=== PATIENT | male | born 1965 | race Caucasian/White ===

== ENCOUNTER 2021-06-03 09:46 | Inpatient (IN) ==
--- NOTE | 2021-05-19 15:24 | PAT Medication Instructions ---
Medication Instructions Date of Service May 19, 2021 Home Medications allopurinol 300 mg tablet 300 mg PO HS celecoxib 200 mg capsule (Celebrex) 200 mg PO BID fenofibric acid (choline) 135 mg capsule,delayed release 135 mg PO QAM metoprolol succinate 50 mg tablet,extended release 24 hr 50 mg PO QAM omega 8-mlu-vmn-fish oil 900 mg-1,400 mg capsule,delayed release 1 cap PO TID pregabalin 150 mg capsule 150 mg PO BID ASK your surgeon for instructions celecoxib 200 mg capsule (Celebrex) 200 mg PO BID STOP taking 2 weeks before surgery (or as soon as possible if surgery is within 2 weeks) omega 7-ccg-erf-fish oil 900 mg-1,400 mg capsule,delayed release 1 cap PO TID DO NOT take the morning of surgery fenofibric acid (choline) 135 mg capsule,delayed release 135 mg PO QAM Take morning of surgery With a small sip of water, OTHERWISE NOTHING TO EAT OR DRINK AFTER MIDNIGHT: metoprolol succinate 50 mg tablet,extended release 24 hr 50 mg PO QAM pregabalin 150 mg capsule 150 mg PO BID Take evening before surgery allopurinol 300 mg tablet 300 mg PO HS pregabalin 150 mg capsule 150 mg PO BID Other Notes If you have any questions please call us at [phone] or [phone] or [phone] or [phone]
--- NOTE | 2021-05-24 12:38 | Anesthesiology Consultation ---
Date of Service May 24, 2021 Assessment & Plan (1) Encounter for pre-operative examination: - Preop EKG: iLBBB noted on preop EKG. Reviewed with Dr. Lane. He recommends forwarding EKG to PCP and to leave at their discretion if further cardiac evalu ation and/or testing needed from their perspective. Awaiting PCP response. - COVID screening: Per assessment on 05/24: Travel screen negative, no known COVID-19 positive contacts or current COVID-19 related symptoms. Patient vaccinated. Surgeon arranging preop COVID testing. Awaiting results. - Check BSG AM DOS (BSG elevated at 161 on preop labs. No known hx of diabetes. Will recheck BSG AM DOS) Chart Review Chart Review: Patient seen in Pre Admission Testing Teaching & Discussion Pre-Anesthesia Teaching/Discussion Notes: Instructed NPO after midnight before surgery,except medications with 15 cc of water. Medication instructions provided according to the PAT guidelines. History Surgery Operation Date: 06/03/21 07:45 Proposed Procedures p L2-L3 Decompression/Fusion, Spinal Cord Monitoring - Jose Martin Wray DO Height/Weight Height: 5 ft 9 in Weight: 92.5 kg Allergies Allergy/AdvReac Type Severity Reaction Status Date / Time No Known Allergies Allergy Verified 05/19/21 11:25 Medications Home Medications Medication Instructions Recorded Confirmed Last Taken allopurinol 300 mg tablet 300 mg PO HS 05/19/21 05/19/21 Unknown celecoxib 200 mg capsule (Celebrex) 200 mg PO BID 05/19/21 05/19/21 Unknown fenofibric acid (choline) 135 mg 135 mg PO QAM 05/19/21 05/19/21 Unknown capsule,delayed release metoprolol succinate 50 mg 50 mg PO QAM 05/19/21 05/19/21 Unknown tablet,extended release 24 hr omega 2-xis-gvr-fish oil 900 1 cap PO TID 05/19/21 05/19/21 Unknown mg-1,400 mg capsule,delayed release pregabalin 150 mg capsule 150 mg PO BID 05/19/21 05/19/21 Unknown Past Medical History Medical History Chronic back pain RLE Fast heart beat Hx, controlled on beta brandie (PCP monitoring) Hyperlipidemia Exercise / Class Metabolic Activity II 4-5 Yardwork/Stairs/Walk up hill (one FS (no CP, no SOB)) Past Family History Family History Other No known health problems Past Surgical History Surgical History Epididymal cyst Removal Fusion of spine L5 (1989) History of carpal tunnel release R/L History of elbow surgery R/L (for tennis elbow) History of herniorrhaphy History of repair of rotator cuff R/L Past Anesthesia History No Family Hx of Anesthesia Complications and Other (Irritable with anesthesia emergence. Significant pain after PNB with previous surgery.) History of PONV No Hx of PONV and No Hx of Motion Sickness Social History Smoking Status: Never smoker Do You Dip or Chew Tobacco: No Hx Alcohol Use: No Hx Substance Use: No Review of Systems Patient denies chest pain, shortness of breath, dyspnea on exertion, fever, chills, cough, wheezing, palpitations. Physical Exam Vital Signs VITALS BP 131/78 P 59 TEMP 98.2 SP02 100%RA RESP 16 PHYSICAL Full cervical extension range of motion. Full TMJ range of motion. TMD 3 finger breaths Mallampati Score 3 Dentition: missing molars Lungs: clear throughout to auscultation Cardiac: regular rate and rhythm, no murmurs noted Spine: normal Carotid arteries: negative bruit Extremities: no edema Lab Results Anesthesia Preop Results Results Anesthesia Widget: WBC 4.69 K/uL (4.8-10.8) L 05/24/21 Hgb 14.9 g/dL (14.0-18.0) 05/24/21 Hct 43.7 % (42-52) 05/24/21 Plt 201 K/uL (130-400) 05/24/21 Na 140 mmol/L (136-145) 05/24/21 K 4.0 mmol/L (3.5-5.1) 05/24/21 Cl 108 mmol/L (98-107) H 05/24/21 CO2 26 mmol/L (21-32) 05/24/21 BUN 21 mg/dl (7-18) H 05/24/21 Creat 1.16 mg/dl (0.6-1.4) 05/24/21 Glucose Level 161 mg/dl (70-99) H 05/24/21 PT 10.9 Seconds (9.0-12.0) 05/24/21 PTT 24.7 Seconds (21.0-31.0) 05/24/21 INR 1.1 (0.9-1.1) 05/24/21 Urine Color Dark Yellow 05/24/21 Urine Appearance Clear (Clear) 05/24/21 Urine pH 5.0 (4.5-7.5) 05/24/21 Urine Specific [place] 1.029 (1.000-1.030) 05/24/21 Urine Protein Trace (Negative) H 05/24/21 Urine Glucose (UA) 1+ (Negative) H 05/24/21 Urine Ketones Trace (Negative) H 05/24/21 Urine Blood Negative (Negative) 05/24/21 Urine Nitrite Negative (Negative) 05/24/21 Urine Bilirubin 1+ (Negative) H 05/24/21 Urine Urobilinogen Negative (Negative) 05/24/21 Urine Leukocyte Esterase Negative (Negative) 05/24/21 Urine WBC (Auto) 1-5 /hpf (0-5) 05/24/21 Urine RBC (Auto) 0-4 /hpf (0-4) 05/24/21 Urine Hyaline Casts (Auto) 5-10 /lpf (0-5) H 05/24/21 Urine Epithelial Cells (Auto) 20-30 /lpf (0-5) H 05/24/21 Urine Bacteria (Auto) Negative (Negative) 05/24/21 Blood Type A Positive 05/24/21 Antibody Screen NEGATIVE 05/24/21 Testing Electrocardiogram Date: 05/24/21 Sinus bradycardia 55 bpm. LAD. Pulmonary disease pattern. Incomplete left bundle block. Nonspecific T wave abnormalityanterior lateral leads. Chest X-Ray Date: 05/24/21 FINDINGS: Lung volumes are normal. Lungs are clear. There is no pneumothorax or pleural effusion. Mild cardiomegaly is noted. Mediastinal contours are normal. There is no evidence for pulmonary edema. IMPRESSION: No acute cardiopulmonary findings. Mild cardiomegaly.
[~2021-06-03 09:46] MED LIST: ACETAMINOPHEN 500 MG TAB PO SCH; CeleBREX 200 MG CAP PO SCH; GABAPENTIN 600 MG DOSE PO SCH; LR 15ML/HR IV SCH; ceFAZolin 2000MG 2,000 MG/15 ML SYR IV SCH
[2021-06-03] MEDS ORDERED: fentaNYL citrate 100 MCG/2 ML VIAL ONE (10:57)
[2021-06-03] MEDS ORDERED: LIDOCAINE 2% 2 ML VIAL/AMP(20MG/ML) INFIL ONE (10:57)
[2021-06-03] MEDS ORDERED: NEOSTIGMINE METHYLSULFATE 1 MG/ML 10ML VIAL ONE (10:57)
[2021-06-03] MEDS ORDERED: GLYCOPYRROLATE 0.2 MG/ML VIAL ONE (10:57)
[2021-06-03] MEDS ORDERED: ONDANSETRON INJ 2 MG/ML 2 ML VIAL ONE (10:57)
[2021-06-03] MEDS ORDERED: DEXAMETHASONE SOD INJ 4 MG/ML VIAL ONE (10:57)
[2021-06-03] MEDS ORDERED: MIDAZOLAM HCL 1 MG/ML 2ML VIAL ONE (10:57)
[2021-06-03] MEDS ORDERED: PROPOFOL IV EMULSION 10 MG/ML 20 ML VIAL IV ONE (10:57)
[2021-06-03] MEDS ORDERED: BUPIVACAINE 0.5 % 5 MG/1 ML MPF 30ML VIAL ONE (11:50)
[2021-06-03] MEDS ORDERED: EPINEPHrine INJ 1 MG/ML AMP ONE (11:50)
--- NOTE | 2021-06-03 11:59 | History & Physical Bridge Note ---
Date of Service June 03, 2021 History & Physical Bridge Note I have examined the patient, reviewed the History & Physical and in the interval since the performance of the History & Physical I have noted the following changes of clinical significance: no changes noted
--- NOTE | 2021-06-03 12:00 | History & Physical Report ---
Date of Service June 03, 2021 Assessment & Plan (1) Lumbar disc herniation with radiculopathy: Plan: L2-L3 decompression fusion History of Present Illness Chief Complaint: Back and leg pain Primary Care Provider: Va Lopez This is a 55-year-old male who presents with current persistent back and leg pain. Failing course of nonoperative care is here for surgical intervention. Allergies Allergy/AdvReac Type Severity Reaction Status Date / Time No Known Allergies Allergy Verified 06/03/21 10:20 Home Medications Medication Instructions Recorded Confirmed Type allopurinol 300 mg tablet 300 mg PO HS 05/19/21 06/03/21 History celecoxib 200 mg capsule (Celebrex) 200 mg PO BID 05/19/21 06/03/21 History fenofibric acid (choline) 135 mg 135 mg PO QAM 05/19/21 06/03/21 History capsule,delayed release metoprolol succinate 50 mg 50 mg PO QAM 05/19/21 06/03/21 History tablet,extended release 24 hr omega 1-zox-isj-fish oil 900 1 cap PO TID 05/19/21 06/03/21 History mg-1,400 mg capsule,delayed release pregabalin 150 mg capsule (Lyrica) 150 mg PO BID 05/19/21 06/03/21 History Past Med/Surg History Medical History Chronic back pain RLE Fast heart beat Hx, controlled on beta brandie (PCP monitoring) Hyperlipidemia Surgical History Epididymal cyst Removal Fusion of spine L5 (1989) History of carpal tunnel release R/L History of elbow surgery R/L (for tennis elbow) History of herniorrhaphy History of repair of rotator cuff R/L Family History Other No known health problems Social History (Updated 05/19/21 @ 11:49 by Alva Calderon RN) Smoking Status: Never smoker Second Hand Exposure: No; Do You Dip or Chew Tobacco: No; Hx Alcohol Use: No Hx Substance Use: No Preferred Language: Slovak Communication Ability: Effective Secondary Connector Armature Required: No Beliefs That Will Affect Care: None Current Living Situation: Alone current occupational status: employed current occupation: MAINTENANCE Other Information That Helps Us Care for You: No Feels Safe at Home: Yes Safety Concerns: Feels Safe At This Time Assistive Devices: Glasses Physical Exam Physical Exam: Patient is alert and oriented Heart regular in rhythm Lungs clear to auscultation Results & Data ([facility]) Vital Signs (Past 12 Hours) Vital Signs Temp Pulse Resp BP Pulse Ox 06/03/21 10:24 36.7 C 74 18 164/82 H 98
[2021-06-03] MEDS ORDERED: ONDANSETRON INJ 2 MG/ML 2 ML VIAL IV PRN ×2 (12:08→15:44)
[2021-06-03] MEDS ORDERED: ATROPINE SULFATE 0.1 MG/ML 10ML SYR IV PRN (12:08)
[2021-06-03] MEDS ORDERED: HYDROmorphone INJ 2 MG/ML SYR/VIAL IV PRN (12:08)
[2021-06-03] MEDS ORDERED: ePHEDrine sulfate 50 MG/ML AMP IV PRN (12:08)
[2021-06-03] MEDS ORDERED: ROCURONIUM BROMIDE 10 MG/ML 5 ML VIAL IV ONE ×3 (12:10→12:52)
[2021-06-03] MEDS ORDERED: HYDROmorphone INJ 2 MG/ML SYR/VIAL ONE (12:53)
[2021-06-03] MEDS ORDERED: FLOSEAL HEMOSTATIC MATRIX 10ML TOP ONE (13:58)
[2021-06-03] MEDS ORDERED: ePHEDrine sulfate 50 MG/ML SYR ONE (14:01)
[2021-06-03] MEDS ORDERED: PHENYLEPHRINE 100MCG/ML 5ML SYR ONE (14:01)
--- NOTE | 2021-06-03 14:04 | Operative Report ---
Post Operative Report Pre & Post Diagnosis Operation Date: 06/03/21 12:05 Pre-Op Diagnosis: Intervertebral Disc Disorders with Radiculopathy Post-Op Diagnosis: Intervertebral Disc Disorders with Radiculopathy I identified the patient and participated in the time-out.: Yes Procedure Operation Date: 06/03/21 12:05 Actual Procedures #1 Lumbar decompression with medial facetectomy foraminotomy and excision of herniated foraminal disc L2-L3. #2 posterior spinal fusion L2-3. #3 placement posterior instrumentation L2-L3. #4 interbody fusion L2-L3. #5 placed a peek cage 14 x 26 mm at L2-L3. #6 placement locally harvested morselized autograft in the posterior gutters. #7 placement of I factor combined with Vitoss in the interbody space and posterior lateral gutters. Surgeon Jose Martin Wray, Associate Doctor Johnathan Crandall Estimated Blood Loss 75 Findings Consistent with Post-Op Diagnosis Specimens None Indications This is a 55-year-old male who presents with above-mentioned diagnosis after failing course of nonoperative care is here for the above-mentioned procedure. Description of Procedure Patient was met with identified informed consent obtained. Patient was then taken to the operative suite underwent ablation placed in a prone position on Jone table top [place] frame. A bony promises well-padded eyes inspected to ensure no external pressure placed upon them. This point lumbar spine was prepped and draped in a sterile fashion. Sharp dissection with the assistance of Bovie cautery was performed down to and exposing the lamina and transverse processes of L2 and L3. From caudal cephalad fashion complete laminectomy of L2 was performed occluding facetectomy on the right to expose a severely compressed exiting L2 nerve root. Was able to identify fragments in the axilla all the way out through the foramen. The removed in their entirety to decompress the root. Pedicle screws were then placed in L2 and L3 bilaterally with assistance of fluoroscopy the proper sized terrance placed. Bilateral transforaminal portion right complete discectomy of L2-L3 was performed endplates curetted to subcortical being bone and a 14 x 26 mm peek cage filled with I factor tapped in position. The rods were then compressed locked into final position bilaterally. Mejia sverse processes of L2 and L3 burred to subcortically bone. I factor combined with Vitoss placed in the posterior gutters. 15 round ARABELLA drain inserted. The incision was then closed with 1 Vicryl the fascia 2-0 Vicryl subcutaneously and 4 Monocryl for final skin closure. Steri-Strip sterile dressing was placed. Patient waken taken PACU stable condition. Please note spinal cord monitoring was utilized at the procedure no changes noted. Lastly Johnathan Crandall was present for the entire surgery involved the patient positioning complex portions of the surgery and final skin closure. I attest to the content of the Intraoperative Record and any orders documented therein. Any exceptions are noted below.
[2021-06-03] MEDS: fentaNYL citrate 100 MCG/2 ML VIAL IV PRN ×4 (14:35→14:55)
--- NOTE | 2021-06-03 14:59 | Fluoroscopy Report ---
FL lumbar spine 2-3V HISTORY: 55 years-old Male L2-L3 DECOMPRESSION/FUSION COMPARISON: Chest radiographs 05/24/2021 TECHNIQUE: 2 views of the lumbar spine were obtained utilizing 25.3 seconds fluoroscopy time FINDINGS: Posterior terrance and screw fusion with discectomy changes are noted at what is labeled the L2-L3 level. Exact numbering cannot be confirmed secondary to magnification of the image. The hardware appears int act. Alignment appears satisfactory. IMPRESSION: Fluoroscopic assistance as above. ACT 112: Negative or not required by law. The above report was generated using voice recognition software. It may contain grammatical, syntax o r spelling errors. Electronically signed by: Desean Abebe M.D. 06/03/2021 2:58 PM
--- NOTE | 2021-06-03 15:25 | Anesthesiology Progress Note ---
Date of Service June 03, 2021 Anesthesia Post Procedure Vital Signs Vital Signs: Temp Pulse Pulse Resp BP Pulse Ox 06/03/21 15:05 36.6 C 65 12 142/67 H 100 06/03/21 14:55 60 18 131/71 97 06/03/21 14:45 65 13 137/75 95 06/03/21 14:35 71 16 145/85 H 100 06/03/21 14:25 36.2 C L 75 16 168/87 H 100 06/03/21 10:24 36.7 C 74 18 164/82 H 98 Pain Intensity Right Lower Back: Pain Intensity: 4 Transfer of Care Handoff Completed per policy Notes Mental Status: alert / awake / arousable and participated in evaluation Patient Amnestic to Procedure: Yes Nausea / Vomiting: adequately controlled Pain: adequately controlled Airway Patency, RR, SpO2: stable & adequate BP & HR: stable & adequate Hydration State: stable & adequate Anesthetic Complications: no major complications apparent
[2021-06-03] MEDS ORDERED: NALOXONE HCL 0.4 MG/1 ML VIAL/CARP IV PRN (15:44)
[2021-06-03] MEDS ORDERED: DO NOT ADMINISTER FLU VACCINE PRN (15:44)
[2021-06-03] MEDS ORDERED: oxyCODONE HCL IR 5 MG TAB (IMMEDIATE RELEASE) PO PRN (15:44)
[2021-06-03] MEDS ORDERED: bisacodyL 10 MG SUPP PR PRN (15:44)
[2021-06-03] MEDS ORDERED: diphenhydrAMINE Capsule 25 MG CAP PO PRN (15:44)
[2021-06-03] MEDS ORDERED: DO NOT ADMINISTER PNEUMOCOCCAL VACCINE PRN (15:44)
[2021-06-03] MEDS ORDERED: FAMOTIDINE 20 MG TAB PO PRN (15:44)
[2021-06-03] MEDS ORDERED: METOCLOPRAMIDE HCL INJ 5 MG/ML 2 ML VIAL IV PRN (15:44)
[2021-06-03] MEDS ORDERED: PROMETHAZINE HCL 12.5 MG in SODIUM CHLORIDE 0.9% 50 ML IV PRN (15:44)
[2021-06-03] MEDS ORDERED: ACETAMINOPHEN 1,000 MG/100 ML VIAL IV PRN (15:44)
[2021-06-03] MEDS ORDERED: MAGNESIUM HYDROXIDE SUSP 30 ML UDC PO PRN (15:44)
[2021-06-03] MEDS ORDERED: SOD PHOSPHATE/SOD BIPHOSPHATE ENEMA 132 ML BTL PR PRN (15:44)
[2021-06-03] MEDS ORDERED: ONDANSETRON 4 MG OD TAB PO PRN (15:44)
[2021-06-03] MEDS ORDERED: LORazepam 0.5 MG TAB PO PRN (15:44)
[2021-06-03] MEDS ORDERED: HYDROmorphone INJ 1 MG/ML SYRINGE IV PRN (15:44)
[2021-06-03] MEDS ORDERED: HYDROmorphone INJ 0.5 MG/0.5 ML SYR IV PRN (15:44)
[2021-06-03] MEDS ORDERED: hydrOXYzine HCl 25 MG TAB PO PRN (15:44)
[2021-06-03] MEDS ORDERED: LORazepam 0.5 MG/1 ML VIAL IV PRN (15:44)
[2021-06-03] MEDS ORDERED: ALUMINUM/MAGNESIUM SUSP 30 ML UDC PO PRN (15:44)
[2021-06-03] MEDS ORDERED: ACETAMINOPHEN 500 MG TAB PO PRN (15:44)
--- NOTE | 2021-06-03 16:40 | Consultation ---
Date of Consultation June 03, 2021 Assessment & Plan (1) Status post lumbar surgery: Post op day# 0 S/P L2-L3 decompression and fusion by Dr Wray EBL#75ml -pain management per ortho -wound management per ortho -PT/OT as appropriate -DVT prophylaxis per ortho -incentive spirometry -monitor H&H for acute blood loss anemia; pre-op Hgb: 14.9 (2) Tachycardia: Reported h/o tachycardia. Controlled on beta brandie -Current rate controlled -Continue metoprolol succinate (3) Hyperlipidemia: -Continue fenofibrate. [place] 3 on hold (4) Gout: -Continue allopurinol DVT Prophylaxis -SCDs per ortho Disposition per primary service Follows with Dr Va Lopez for routine care Pt was seen and care coordinated with Dr Strong. See addendum Thank you for this consultation. We will follow the patient with you during their hospital stay. You can reach a member of the [facility] Team 21/05 via [employer] Supervising Physician Co-Signing Physician Notes Patient seen and examined by me, care coordinated with CLAIRE Mata, please refer to her note above for further detail. Pt is a 55 y/o M with hx of tachycardia, dyslipidemia, gout seen in medical consultation s/p L2-L3 decompression and fusion today by Dr. Wray. Postop patient is feeling well, resting in bed, in no acute distress, currently using 2 L of oxygen via nasal cannula. Lungs are clear to auscultation bilaterally without any rhonchi or crackles, heart sounds regular, abdomen is soft, nontender nondistended with positive bowel sounds. Patient is alert and oriented answering questions appropriately. He is able to move lower extremities while laying in bed. Skin is warm and dry, well-perfused. Continue to closely monitor hemodynamic status, H&H. Encourage incentive spirometry. Aleyda Strong MD History of Present Illness Requesting Physician: Dr Wray Reason for Consultation: Post op medical management Attending Physician: Jose Martin Wray DO History of Present Illness Pt is 55 y/o M with PMH tachycardia, dyslipidemia, gout seen in medical consultation s/p L2-L3 decompression and fusion today by Dr. Wray. Postop patient reports doing well pain controlled. Denies nausea, vomiting, chest pain, shortness of breath. Ahn catheter has been removed. Denies fever/chills, diaphoresis, FLORES, dizziness, syncope, vision changes, neck pain, orthopnea, palpitations, cough, sore throat, choking, otalgia, rhinorrhea, abdominal pain, paresthesias, weakness, extremity edema, rashes, urinary symptoms. Allergies Allergy/AdvReac Type Severity Reaction Status Date / Time No Known Allergies Allergy Verified 06/03/21 10:20 Home Medications Medication Instructions Recorded Confirmed Type allopurinol 300 mg tablet 300 mg PO HS 05/19/21 06/03/21 History celecoxib 200 mg capsule (Celebrex) 200 mg PO BID 05/19/21 06/03/21 History fenofibric acid (choline) 135 mg 135 mg PO QAM 05/19/21 06/03/21 History capsule,delayed release metoprolol succinate 50 mg 50 mg PO QAM 05/19/21 06/03/21 History tablet,extended release 24 hr omega 6-apw-qso-fish oil 900 1 cap PO TID 05/19/21 06/03/21 History mg-1,400 mg capsule,delayed release pregabalin 150 mg capsule (Lyrica) 150 mg PO BID 05/19/21 06/03/21 History Patient History Medical History (Updated 06/03/21 @ 16:42 by Maryann Prado PA-C) Chronic back pain RLE Fast heart beat Hx, controlled on beta brandie (PCP monitoring) Gout Hyperlipidemia Surgical History (Updated 06/03/21 @ 16:42 by Maryann Prado PA-C) Epididymal cyst Removal Fusion of spine L5 (1989) History of carpal tunnel release R/L History of elbow surgery R/L (for tennis elbow) History of herniorrhaphy History of repair of rotator cuff R/L Family History Other No known health problems Social History Smoking Status: Never smoker Second Hand Exposure: No; Do You Dip or Chew Tobacco: No; Hx Alcohol Use: No Hx Substance Use: No Preferred Language: Nepali Communication Ability: Effective Loss Prevention And Safety Manager Required: No Beliefs That Will Affect Care: None Current Living Situation: Alone current occupational status: employed current occupation: MAINTENANCE Other Information That Helps Us Care for You: No Feels Safe at Home: Yes Safety Concerns: Feels Safe At This Time Assistive Devices: Glasses Review of Systems Review of Systems: All systems reviewed & are unremarkable except as noted in HPI & below Physical Exam Physical Exam: General: no distress, WDWN Head: normocephalic, atraumatic Eyes: conjunctiva non-injected, anicteric ENT: hard of hearing, normal inspection external ears, nose, mucous membranes moist Neck: supple, trachea midline Lungs: clear, no respiratory distress, no wheezing/rhonchi/rales CV: RRR, no pretibial edema Abd: normal BS, soft, non-tender Back: surgical dressing in place is dry, ARABELLA drain with serosanguineous drainage Ext: no cyanosis, no calf tenderness; bilateral pedal pushes and pulls intact, distal pulses intact, sensation to light touch intact Neuro: A&O x 3, no focal deficits noted, normal affect Skin: warm, dry Results & Data ([facility]) Vital Signs (Past 12 Hours) Vital Signs Temp Pulse Pulse Pulse Resp BP Pulse Ox 06/03/21 16:26 36.4 C L 60 18 107/70 96 06/03/21 16:06 36.5 C 77 16 146/72 H 96 06/03/21 15:25 36.6 C 79 16 133/66 98 06/03/21 15:15 36.6 C 87 13 140/71 98 06/03/21 15:05 36.6 C 65 12 142/67 H 100 06/03/21 14:55 60 18 131/71 97 06/03/21 14:45 65 13 137/75 95 06/03/21 14:35 71 16 145/85 H 100 06/03/21 14:25 36.2 C L 75 16 168/87 H 100 06/03/21 10:24 36.7 C 74 18 164/82 H 98
[2021-06-03] MEDS: KETOROLAC 30 MG/ML VIAL IV SCH ×2 (16:59→21:16)
[2021-06-03] MEDS: METOPROLOL SUCC 50MG EXT REL TAB PO ONE ×2 (17:00→17:10)
[2021-06-03] MEDS: ceFAZolin 2000MG 2,000 MG/15 ML SYR IV SCH (17:14)
[2021-06-03] MEDS: LACTATED RINGER'S 1,000 ML IV SCH ×2 (19:37→21:45)
[2021-06-03] MEDS: allopurinoL 300 MG TAB PO SCH (21:16)
[2021-06-03] MEDS: PREGABALIN 150 MG CAP PO SCH (21:16)
[2021-06-03] MEDS: DOCUSATE SODIUM/SENNA 50/8.6MG TAB PO SCH (21:16)
[2021-06-04] MEDS: LACTATED RINGER'S 1,000 ML IV SCH (01:53)
[2021-06-04] MEDS: ceFAZolin 2000MG 2,000 MG/15 ML SYR IV SCH (01:53)
[2021-06-04] MEDS: KETOROLAC 30 MG/ML VIAL IV SCH ×2 (03:03→09:36)
[2021-06-04] MEDS: POLYETHYLENE (MIRALAX) 17 GM PACK PO SCH ×3 (05:30→18:06)
[2021-06-04 06:03] LABS: Eosinophils # (auto) 0.01 K/uL (0-0.5); Eosinophils % (auto) 0.1 %; Hematocrit (blood only) 35.8 % (42-52); Hemoglobin 12.2 g/dL (14.0-18.0); Immature Granulocytes # (auto) 0.01 K/uL (0.00-0.02); Immature Granulocytes % (auto) 0.1 %; Lymphocytes # (auto) 1.22 K/uL (1.2-3.4); Lymphocytes % (auto) 14.8 %; Mean Corpuscular Hemoglobin 30.4 pg (25-34); Mean Corpuscular Hgb Conc 34.1 g/dL (32-36); Mean Corpuscular Volume 89.3 fL (80-100); Mean Platelet Volume 9.7 fL (7.4-10.4); Monocytes # (auto) 0.66 K/uL (0.11-0.59); Neutrophils # (auto) 6.33 K/uL (1.4-6.5); Platelet Count 205 K/uL (130-400); RDW Standard Deviation 42.5 fL (36.4-46.3); Red Blood Count 4.01 M/uL (4.7-6.1); White Blood Count 8.23 K/uL (4.8-10.8)
[2021-06-04 06:45] LABS: BUN Creatinine Ratio 14.5 (10-20); Calcium 8.4 mg/dl (8.5-10.1); Creatinine Clr Calc Pharmacy 68.9 ml/min; Est GFR (Non-African American) 58.7 ml/min; Potassium 3.9 mmol/L (3.5-5.1)
--- NOTE | 2021-06-04 07:06 | Hospitalist Progress Note ---
Date of Service June 04, 2021 Assessment & Plan (1) Status post lumbar surgery: Plan: Post op day# 1 S/P L2-L3 decompression and fusion by Dr Wray -pain management per ortho -wound management per ortho -PT/OT as appropriate -DVT prophylaxis per ortho -incentive spirometry -monitor H&H for acute blood loss anemia; pre-op Hgb: 14.9 Acute blood loss anemia, postop, dilutional Current hemoglobin 12.2 post op blood loss expected, no need for blood transfusion patient asymptomatic (2) Tachycardia: Plan: Reported h/o tachycardia. Controlled on beta brandie -Current rate controlled -Continue metoprolol succinate (3) Hyperlipidemia: Plan: -Continue fenofibrate. [place] 3 on hold (4) Gout: Plan: -Continue allopurinol DVT Prophylaxis -SCDs per ortho Disposition per primary service Follows with Dr Va Lopez for routine care Thank you for this consultation. We will follow the patient with you during their hospital stay. You can reach a member of the [facility] 21/05 via [employer] Admission and Anticipated Discharge Date Admission Date: June 03, 2021 Subjective Patient seen in follow-up after spinal surgery Currently lying in bed, in no acute distress, denies any significant pain Reports he ambulated to the bathroom Denies any dizziness, lightheadedness with ambulation He is voiding without difficulty, passing flatus, no BM yet No chest pain, shortness of breath, abdominal pain, nausea or vomiting, currently eating breakfast Review of Systems Review of Systems: All systems reviewed & are unremarkable except as noted in Subjective Physical Exam Physical Exam: General: no distress, WDWN Head: normocephalic, atraumatic Eyes: conjunctiva non-injected, anicteric ENT: hard of hearing, normal inspection external ears, nose, mucous membranes moist Neck: supple, trachea midline Lungs: clear, no respiratory distress, no wheezing/rhonchi/rales CV: RRR, no pretibial edema Abd: normal BS, soft, non-tender Back: surgical dressing in place is dry, ARABELLA drain with serosanguineous drainage Ext: no cyanosis, no calf tenderness; bilateral pedal pushes and pulls intact, distal pulses intact, sensation to light touch intact Neuro: A&O x 3, no focal deficits noted, normal affect Skin: warm, dry Results & Data Results & Data ([facility]) Vital Signs (Past 12 Hours) Vital Signs Temp Pulse Resp BP Pulse Ox 06/04/21 03:34 36.6 C 65 15 113/61 98 06/03/21 21:39 36.4 C L 54 L 16 134/70 95 Laboratory Results 06/04/21 06/04/21 06/03/21 Range/Units 05:47 05:47 14:40 WBC 8.23 (4.8-10.8) K/uL RBC 4.01 L (4.7-6.1) M/uL Hgb 12.2 L (14.0-18.0) g/dL Hct 35.8 L (42-52) % MCV 89.3 (80-100) fL MCH 30.4 (25-34) pg MCHC 34.1 (32-36) g/dL RDW Std Deviation 42.5 (36.4-46.3) fL RDW Coeff of Azeem 13.0 (11.5-14.5) % Plt Count 205 (130-400) K/uL MPV 9.7 (7.4-10.4) fL Immature Gran % (Auto) 0.1 % Neut % (Auto) 77.0 % Lymph % (Auto) 14.8 % [place] % (Auto) 8.0 % Eos % (Auto) 0.1 % Baso % (Auto) 0.0 % Neut # (Auto) 6.33 (1.4-6.5) K/uL Lymph # (Auto) 1.22 (1.2-3.4) K/uL [place] # (Auto) 0.66 H (0.11-0.59) K/uL Eos # (Auto) 0.01 (0-0.5) K/uL Baso # (Auto) 0.00 (0-0.2) K/uL Immature Gran # (Auto) 0.01 (0.00-0.02) K/uL Sodium 138 (136-145) mmol/L Potassium 3.9 (3.5-5.1) mmol/L Chloride 107 (98-107) mmol/L Carbon Dioxide 26 (21-32) mmol/L Anion Gap 5.0 (3-11) BUN 20 H (7-18) mg/dl Creatinine 1.35 (0.6-1.4) mg/dl Est Cr Clr Drug Dosing 68.9 ml/min Est GFR ( Amer) 68.0 ml/min Est GFR (Non-Af Amer) 58.7 ml/min BUN/Creatinine Ratio 14.5 (10-20) Glucose 169 H (70-99) mg/dl POC Glucose 142 H (70-99) mg/dl Calcium 8.4 L (8.5-10.1) mg/dl Specimen Hemolysis COVID-19 Eval Order SARS-CoV-2, RNA, NAAT (NEGATIVE) 06/03/21 06/03/21 06/03/21 Range/Units 10:09 10:09 10:09 WBC (4.8-10.8) K/uL RBC (4.7-6.1) M/uL Hgb (14.0-18.0) g/dL Hct (42-52) % MCV (80-100) fL MCH (25-34) pg MCHC (32-36) g/dL RDW Std Deviation (36.4-46.3) fL RDW Coeff of Azeem (11.5-14.5) % Plt Count (130-400) K/uL MPV (7.4-10.4) fL Immature Gran % (Auto) % Neut % (Auto) % Lymph % (Auto) % [place] % (Auto) % Eos % (Auto) % Baso % (Auto) % Neut # (Auto) (1.4-6.5) K/uL Lymph # (Auto) (1.2-3.4) K/uL [place] # (Auto) (0.11-0.59) K/uL Eos # (Auto) (0-0.5) K/uL Baso # (Auto) (0-0.2) K/uL Immature Gran # (Auto) (0.00-0.02) K/uL Sodium (136-145) mmol/L Potassium (3.5-5.1) mmol/L Chloride (98-107) mmol/L Carbon Dioxide (21-32) mmol/L Anion Gap (3-11) BUN (7-18) mg/dl Creatinine (0.6-1.4) mg/dl Est Cr Clr Drug Dosing ml/min Est GFR ( Amer) ml/min Est GFR (Non-Af Amer) ml/min BUN/Creatinine Ratio (10-20) Glucose (70-99) mg/dl POC Glucose 167 H (70-99) mg/dl Calcium (8.5-10.1) mg/dl Specimen Hemolysis COVID-19 Eval Order Covid19 IDNow atMILC SARS-CoV-2, RNA, NAAT NEGATIVE (NEGATIVE) Medications Administered Current Inpatient Medications Acetaminophen (Acetaminophen 500 Mg Tab) 1,000 mg PO Q8H PRN PRN Reason: MILD Pain Scale 1,2,3 & Pre PT Stop: 07/03/21 15:43 Al Hydrox/Mg Hydrox/Simethicone (Aluminum/Magnesium Susp 30 Ml Udc) 30 ml PO Q6H PRN PRN Reason: Dyspepsia Stop: 07/03/21 15:43 Allopurinol (Allopurinol 300 Mg Tab) 300 mg PO HS GEETHA Stop: 07/03/21 20:59 Last Admin: 06/03/21 21:16 Dose: 300 mg Documented by: Bisacodyl (Bisacodyl 10 Mg Supp) 10 mg [place] DAILY PRN PRN Reason: Constipation Stop: 07/03/21 15:43 Diphenhydramine HCl (Diphenhydramine Capsule 25 Mg Cap) 25 mg PO Q6H PRN PRN Reason: Allergic Rhinitis/Insomnia Stop: 07/03/21 15:43 Famotidine (Famotidine 20 Mg Tab) 20 mg PO Q12H PRN PRN Reason: Dyspepsia Stop: 07/03/21 15:43 Hydromorphone HCl (Hydromorphone Inj 0.5 Mg/0.5 Ml Syr) 0.5 mg IV Q3H PRN PRN Reason: MOD pain (scale 4-6) & Pre PT Stop: 06/17/21 15:43 Hydromorphone HCl (Hydromorphone Inj 1 Mg/Ml Syringe) 1 mg IV Q3H PRN PRN Reason: severe pain (scale 7-10) Stop: 06/17/21 15:43 Hydroxyzine HCl (Hydroxyzine Hcl 25 Mg Tab) 25 mg PO Q8H PRN PRN Reason: Anxiety Stop: 07/03/21 15:43 Promethazine HCl 12.5 mg/ (Sodium Chloride) 50.5 mls @ 202 mls/hr IV Q6H PRN PRN Reason: Nausea &/or Vomiting Stop: 07/03/21 15:43 Acetaminophen (Ofirmev) 1,000 mg in 100 mls @ 400 mls/hr IV Q8H PRN PRN Reason: Pain Rating 1-3 & Pre PT Stop: 06/06/21 15:43 Lorazepam (Ativan) 0.5 mg in 1 mls @ 1 mls/min IV Q8H PRN PRN Reason: Sedation/Anxiety Stop: 07/03/21 15:43 Influenza Virus Vaccine Quadrival (Do Not Administer Flu Vaccine) 1 ea N/A PRN PRN PRN Reason: Notification Stop: 07/03/21 15:43 Ketorolac Tromethamine (Ketorolac 30 Mg/Ml Vial) 30 mg IV Q6H GEETHA Stop: 06/04/21 10:01 Last Admin: 06/04/21 03:03 Dose: 30 mg Documented by: Lorazepam (Lorazepam 0.5 Mg Tab) 0.5 mg PO Q8H PRN PRN Reason: sedation/anxiety Stop: 07/03/21 15:43 Magnesium Hydroxide (Magnesium Hydroxide Susp 30 Ml Udc) 30 ml PO Q24H PRN PRN Reason: Constipation Stop: 07/03/21 15:43 Metoclopramide HCl (Metoclopramide Hcl Inj 5 Mg/Ml 2 Ml Vial) 10 mg IV Q6H PRN PRN Reason: Nausea &/or Vomiting Stop: 07/03/21 15:43 Metoprolol Succinate (Metoprolol Succ 50mg Ext Rel Tab) 50 mg PO QAM GEETHA Stop: 07/04/21 08:59 Miscellaneous (Fenofibric Acid (Choline) 135mg Cap: Order Awaiting Action) 1 ea N/A QS GEETHA Stop: 07/03/21 15:59 Last Admin: 06/03/21 21:45 Dose: Not Given Documented by: Naloxone HCl (Naloxone Hcl 0.4 Mg/1 Ml Vial/Carp) 0.1 mg IV Q5M PRN PRN Reason: Oversedation/respiratory dep Stop: 07/03/21 15:43 Ondansetron HCl (Ondansetron Inj 2 Mg/Ml 2 Ml Vial) 4 mg IV Q6H PRN PRN Reason: Nausea &/or Vomiting Stop: 07/03/21 15:43 Ondansetron HCl (Ondansetron 4 Mg Od Tab) 4 mg PO Q6H PRN PRN Reason: Nausea Stop: 07/03/21 15:43 Oxycodone HCl (Oxycodone Hcl Ir 5 Mg Tab (Immediate Release)) 5 - 10 mg PO Q4H PRN PRN Reason: Pain & Pre PT Stop: 06/17/21 15:43 Last Admin: 06/03/21 18:54 Dose: 5 mg Documented by: Pneumococcal Polyvalent Vaccine (Do Not Administer Pneumococcal Vaccine) 1 ea N/A PRN PRN PRN Reason: Notification Stop: 07/03/21 15:43 Polyethylene Glycol (Polyethylene (Miralax) 17 Gm Pack) 17 gm PO Q6 GEETHA Stop: 07/04/21 05:59 Last Admin: 06/04/21 05:30 Dose: 17 gm Documented by: Pregabalin (Pregabalin 150 Mg Cap) 150 mg PO BID GEETHA Stop: 07/03/21 20:59 Last Admin: 06/03/21 21:16 Dose: 150 mg Documented by: Senna/Docusate Sodium (Docusate Sodium/Senna 50/8.6mg Tab) 2 tab PO HS GEETHA Stop: 07/03/21 20:59 Last Admin: 06/03/21 21:16 Dose: 2 tab Documented by: Sodium Biphosphate/Sodium Phosphate (Sod Phosphate/Sod Biphosphate Enema 132 Ml Btl) 132 ml FL ONE PRN PRN Reason: Constipation Stop: 07/03/21 15:43 Tramadol HCl (Tramadol Hcl 50 Mg Tablet) 50 - 100 mg PO Q4H PRN PRN Reason: Moderate-Severe pain & Pre PT Stop: 07/03/21 15:43
[2021-06-04] MEDS: PREGABALIN 150 MG CAP PO SCH ×2 (08:30→20:37)
[2021-06-04] MEDS ORDERED: [UNRECOGNIZED DRUG - OTHER] PO SCH (09:00)
[2021-06-04] MEDS ORDERED: FENOFIBRIC ACID 135 MG PO SCH (09:00)
[2021-06-04] MEDS: METOPROLOL SUCC 50MG EXT REL TAB PO SCH (09:37)
--- NOTE | 2021-06-04 10:50 | Orthopedic Progress Note ---
Date of Service June 04, 2021 Assessment & Plan (1) Lumbar disc herniation with radiculopathy: Plan: This time continue physical therapy monitor his ARABELLA output anticipate discharge home in next few days. Admission and Anticipated Discharge Date Admission Date: June 03, 2021 Subjective Back pain controlled leg symptoms markedly improved Physical Exam Physical Exam: Patient is ambulating halls. Is comfortable. Distracted testing. Results & Data ([facility]) Vital Signs (Past 12 Hours) Vital Signs Temp Pulse Pulse Resp BP Pulse Ox 06/04/21 09:32 60 115/58 L 06/04/21 07:54 36.6 C 61 16 111/58 L 99 06/04/21 03:34 36.6 C 65 15 113/61 98
[2021-06-04] MEDS ORDERED: Nursing to Pharmacy Communication SCH (19:00)
[2021-06-04] MEDS: traMADol HCL 50 MG TABLET PO PRN (20:37)
[2021-06-04] MEDS: allopurinoL 300 MG TAB PO SCH (20:38)
[2021-06-04] MEDS: DOCUSATE SODIUM/SENNA 50/8.6MG TAB PO SCH (20:38)
[2021-06-05 06:24] LABS: Hematocrit (blood only) 37.2 % (42-52); Hemoglobin 12.3 g/dL (14.0-18.0); Mean Corpuscular Hemoglobin 30.1 pg (25-34); Mean Corpuscular Hgb Conc 33.1 g/dL (32-36); Mean Platelet Volume 9.9 fL (7.4-10.4); Platelet Count 182 K/uL (130-400); RDW Coefficient of Variation 13.4 % (11.5-14.5); RDW Standard Deviation 44.1 fL (36.4-46.3); Red Blood Count 4.09 M/uL (4.7-6.1); White Blood Count 6.95 K/uL (4.8-10.8)
[2021-06-05 07:07] LABS: BUN Creatinine Ratio 17.9 (10-20); Calcium 8.3 mg/dl (8.5-10.1); Creatinine Clr Calc Pharmacy 86.9 ml/min; Est GFR (African American) 90.1 ml/min; Est GFR (Non-African American) 77.7 ml/min
--- NOTE | 2021-06-05 07:42 | Orthopedic Progress Note ---
Date of Service June 05, 2021 Assessment & Plan (1) Lumbar disc herniation with radiculopathy: Plan: Patient is doing well postoperative day #2. I have encouraged him to progress with standing and walking today. His ARABELLA drain is placed out a safe amount of drainage over the last 2 shifts and would like this to slow down before we release him to home he also has not yet had a bowel movement. We will continue with PT OT pain control measures GI and DVT prophylaxis and likely discharge him to home tomorrow. Admission and Anticipated Discharge Date Admission Date: June 03, 2021 Subjective Patient was seen bedside in room 316. He is postop day #2 status post lumbar decompression fusion at L2-3. He is doing well this morning. The leg pain has significantly improved. He is not have a bowel movement. He is tolerating p.o. His pain is relatively well controlled. He states that he is done 6 labs around the nurses station in terms of walking. He denies any other numbness, tingling, or paresthesias. Physical Exam Physical Exam: On exam he is alert and oriented. His abdomen soft nontender his calves are supple nontender. His dressing is clean dry and intact. His ARABELLA drain is in place and is holding suction has had 40 cc out the shift 70 on the last. He has full strength in his lower extremities. Results & Data ([facility]) Vital Signs (Past 12 Hours) Vital Signs Temp Pulse Resp BP Pulse Ox 06/05/21 07:16 36.7 C 66 16 129/77 97 06/04/21 22:03 36.7 C 53 L 16 123/72 95
[2021-06-05] MEDS: METOPROLOL SUCC 50MG EXT REL TAB PO SCH (08:31)
[2021-06-05] MEDS: traMADol HCL 50 MG TABLET PO PRN ×3 (08:34→19:22)
[2021-06-05] MEDS: PREGABALIN 150 MG CAP PO SCH ×2 (08:34→20:43)
--- NOTE | 2021-06-05 09:49 | Hospitalist Progress Note ---
Date of Service June 05, 2021 Assessment & Plan (1) Status post lumbar surgery: Plan: Post op day# 2 S/P L2-L3 decompression and fusion by Dr Wray -pain management per ortho -wound management per ortho -PT/OT as appropriate -DVT prophylaxis per ortho -incentive spirometry -monitor H&H for acute blood loss anemia; pre-op Hgb: 14.9 Acute blood loss anemia, postop, dilutional Current hemoglobin 12.3 (stable from yesterday, hemoglobin 12.2 on June 04) post op blood loss expected, no need for blood transfusion patient asymptomatic (2) Tachycardia: Plan: Reported h/o tachycardia. Controlled on beta brandie -Current rate controlled -Continue metoprolol succinate (3) Hyperlipidemia: Plan: -Continue fenofibrate. [place] 3 on hold (4) Gout: Plan: -Continue allopurinol DVT Prophylaxis -SCDs per ortho Disposition per primary service Follows with Dr Va Lopez for routine care Thank you for this consultation. We will follow the patient with you during their hospital stay. You can reach a member of the [facility] Team 21/05 via [email or web address] Admission and Anticipated Discharge Date Admission Date: June 03, 2021 Subjective Patient seen in follow-up after spinal surgery Currently walking around in his room, in no acute distress, denies any significant pain Denies any chest pain, shortness of breath, dizziness, lightheadedness He is voiding without difficulty, had a BM yesterday Overall feeling well, likely plan to discharge tomorrow Review of Systems Review of Systems: All systems reviewed & are unremarkable except as noted in Subjective Physical Exam Physical Exam: General: no distress, WDWN Head: normocephalic, atraumatic Eyes: conjunctiva non-injected, anicteric ENT: hard of hearing, normal inspection external ears, nose, mucous membranes moist Neck: supple, trachea midline Lungs: clear, no respiratory distress, no wheezing/rhonchi/rales CV: RRR, no pretibial edema Abd: normal BS, soft, non-tender Back: surgical dressing in place is dry, ARABELLA drain with serosanguineous drainage Ext: no calf tenderness; bilateral pedal pushes and pulls intact, distal pulses intact, sensation to light touch intact Neuro: A&O x 3, no focal deficits noted, normal affect Skin: warm, dry Results & Data Results & Data ([facility]) Vital Signs (Past 12 Hours) Vital Signs Temp Pulse Resp BP Pulse Ox 06/05/21 07:16 36.7 C 66 16 129/77 97 06/04/21 22:03 36.7 C 53 L 16 123/72 95 Laboratory Results 06/05/21 06/05/21 Range/Units 05:23 05:23 WBC 6.95 (4.8-10.8) K/uL RBC 4.09 L (4.7-6.1) M/uL Hgb 12.3 L (14.0-18.0) g/dL Hct 37.2 L (42-52) % MCV 91.0 (80-100) fL MCH 30.1 (25-34) pg MCHC 33.1 (32-36) g/dL RDW Std Deviation 44.1 (36.4-46.3) fL RDW Coeff of Azeem 13.4 (11.5-14.5) % Plt Count 182 (130-400) K/uL MPV 9.9 (7.4-10.4) fL Sodium 140 (136-145) mmol/L Potassium 4.0 (3.5-5.1) mmol/L Chloride 109 H (98-107) mmol/L Carbon Dioxide 27 (21-32) mmol/L Anion Gap 4.0 (3-11) BUN 19 H (7-18) mg/dl Creatinine 1.07 (0.6-1.4) mg/dl Est Cr Clr Drug Dosing 86.9 ml/min Est GFR ( Amer) 90.1 ml/min Est GFR (Non-Af Amer) 77.7 ml/min BUN/Creatinine Ratio 17.9 (10-20) Glucose 129 H (70-99) mg/dl Calcium 8.3 L (8.5-10.1) mg/dl Medications Administered Current Inpatient Medications Acetaminophen (Acetaminophen 500 Mg Tab) 1,000 mg PO Q8H PRN PRN Reason: MILD Pain Scale 1,2,3 & Pre PT Stop: 07/03/21 15:43 Al Hydrox/Mg Hydrox/Simethicone (Aluminum/Magnesium Susp 30 Ml Udc) 30 ml PO Q6H PRN PRN Reason: Dyspepsia Stop: 07/03/21 15:43 Allopurinol (Allopurinol 300 Mg Tab) 300 mg PO HS GEETHA Stop: 07/03/21 20:59 Last Admin: 06/04/21 20:38 Dose: 300 mg Documented by: Bisacodyl (Bisacodyl 10 Mg Supp) 10 mg [place] DAILY PRN PRN Reason: Constipation Stop: 07/03/21 15:43 Diphenhydramine HCl (Diphenhydramine Capsule 25 Mg Cap) 25 mg PO Q6H PRN PRN Reason: Allergic Rhinitis/Insomnia Stop: 07/03/21 15:43 Famotidine (Famotidine 20 Mg Tab) 20 mg PO Q12H PRN PRN Reason: Dyspepsia Stop: 07/03/21 15:43 Hydromorphone HCl (Hydromorphone Inj 0.5 Mg/0.5 Ml Syr) 0.5 mg IV Q3H PRN PRN Reason: MOD pain (scale 4-6) & Pre PT Stop: 06/17/21 15:43 Hydromorphone HCl (Hydromorphone Inj 1 Mg/Ml Syringe) 1 mg IV Q3H PRN PRN Reason: severe pain (scale 7-10) Stop: 06/17/21 15:43 Hydroxyzine HCl (Hydroxyzine Hcl 25 Mg Tab) 25 mg PO Q8H PRN PRN Reason: Anxiety Stop: 07/03/21 15:43 Promethazine HCl 12.5 mg/ (Sodium Chloride) 50.5 mls @ 202 mls/hr IV Q6H PRN PRN Reason: Nausea &/or Vomiting Stop: 07/03/21 15:43 Acetaminophen (Ofirmev) 1,000 mg in 100 mls @ 400 mls/hr IV Q8H PRN PRN Reason: Pain Rating 1-3 & Pre PT Stop: 06/06/21 15:43 Lorazepam (Ativan) 0.5 mg in 1 mls @ 1 mls/min IV Q8H PRN PRN Reason: Sedation/Anxiety Stop: 07/03/21 15:43 Influenza Virus Vaccine Quadrival (Do Not Administer Flu Vaccine) 1 ea N/A PRN PRN PRN Reason: Notification Stop: 07/03/21 15:43 Lorazepam (Lorazepam 0.5 Mg Tab) 0.5 mg PO Q8H PRN PRN Reason: sedation/anxiety Stop: 07/03/21 15:43 Magnesium Hydroxide (Magnesium Hydroxide Susp 30 Ml Udc) 30 ml PO Q24H PRN PRN Reason: Constipation Stop: 07/03/21 15:43 Metoclopramide HCl (Metoclopramide Hcl Inj 5 Mg/Ml 2 Ml Vial) 10 mg IV Q6H PRN PRN Reason: Nausea &/or Vomiting Stop: 07/03/21 15:43 Metoprolol Succinate (Metoprolol Succ 50mg Ext Rel Tab) 50 mg PO QAM GEETHA Stop: 07/04/21 08:59 Last Admin: 06/05/21 08:31 Dose: 50 mg Documented by: Miscellaneous (Fenofibric Acid (Choline) 135mg Cap: Order Awaiting Action) 1 ea N/A QS GEETHA Stop: 07/03/21 15:59 Last Admin: 06/05/21 08:29 Dose: Not Given Documented by: Naloxone HCl (Naloxone Hcl 0.4 Mg/1 Ml Vial/Carp) 0.1 mg IV Q5M PRN PRN Reason: Oversedation/respiratory dep Stop: 07/03/21 15:43 Ondansetron HCl (Ondansetron Inj 2 Mg/Ml 2 Ml Vial) 4 mg IV Q6H PRN PRN Reason: Nausea &/or Vomiting Stop: 07/03/21 15:43 Ondansetron HCl (Ondansetron 4 Mg Od Tab) 4 mg PO Q6H PRN PRN Reason: Nausea Stop: 07/03/21 15:43 Oxycodone HCl (Oxycodone Hcl Ir 5 Mg Tab (Immediate Release)) 5 - 10 mg PO Q4H PRN PRN Reason: Pain & Pre PT Stop: 06/17/21 15:43 Last Admin: 06/03/21 18:54 Dose: 5 mg Documented by: Pneumococcal Polyvalent Vaccine (Do Not Administer Pneumococcal Vaccine) 1 ea N/A PRN PRN PRN Reason: Notification Stop: 07/03/21 15:43 Pregabalin (Pregabalin 150 Mg Cap) 150 mg PO BID GEETHA Stop: 07/03/21 20:59 Last Admin: 06/05/21 08:34 Dose: 150 mg Documented by: Senna/Docusate Sodium (Docusate Sodium/Senna 50/8.6mg Tab) 2 tab PO HS GEETHA Stop: 07/03/21 20:59 Last Admin: 06/04/21 20:38 Dose: 2 tab Documented by: Sodium Biphosphate/Sodium Phosphate (Sod Phosphate/Sod Biphosphate Enema 132 Ml Btl) 132 ml RI ONE PRN PRN Reason: Constipation Stop: 07/03/21 15:43 Tramadol HCl (Tramadol Hcl 50 Mg Tablet) 50 - 100 mg PO Q4H PRN PRN Reason: Moderate-Severe pain & Pre PT Stop: 07/03/21 15:43 Last Admin: 06/05/21 08:34 Dose: 100 mg Documented by:
[2021-06-05] MEDS: allopurinoL 300 MG TAB PO SCH (20:43)
[2021-06-05] MEDS: DOCUSATE SODIUM/SENNA 50/8.6MG TAB PO SCH (20:43)
[2021-06-06] MEDS: traMADol HCL 50 MG TABLET PO PRN ×3 (03:37→12:59)
[2021-06-06 06:03] LABS: Hemoglobin 12.7 g/dL (14.0-18.0); Mean Corpuscular Hemoglobin 30.2 pg (25-34); Mean Corpuscular Hgb Conc 33.4 g/dL (32-36); Mean Corpuscular Volume 90.3 fL (80-100); Mean Platelet Volume 9.8 fL (7.4-10.4); Platelet Count 186 K/uL (130-400); RDW Coefficient of Variation 13.1 % (11.5-14.5); RDW Standard Deviation 43.2 fL (36.4-46.3); Red Blood Count 4.21 M/uL (4.7-6.1); White Blood Count 6.89 K/uL (4.8-10.8)
[2021-06-06 06:31] LABS: BUN Creatinine Ratio 14.1 (10-20); Calcium 8.4 mg/dl (8.5-10.1); Creatinine Clr Calc Pharmacy 89.4 ml/min; Est GFR (African American) 93.2 ml/min; Est GFR (Non-African American) 80.5 ml/min; Potassium 3.9 mmol/L (3.5-5.1)
[2021-06-06 07:57] VITALS: TEMP 98.6; O2SAT 95
[2021-06-06] MEDS: METOPROLOL SUCC 50MG EXT REL TAB PO SCH (09:08)
[2021-06-06] MEDS: PREGABALIN 150 MG CAP PO SCH (09:08)
[2021-06-06 09:30] VITALS: BP 121/66; PULSE 77
--- NOTE | 2021-06-06 09:33 | Hospitalist Progress Note ---
Date of Service June 06, 2021 Assessment & Plan (1) Status post lumbar surgery: Plan: Post op day# 3 S/P L2-L3 decompression and fusion by Dr Wray -pain management per ortho -wound management per ortho -PT/OT as appropriate -DVT prophylaxis per ortho -incentive spirometry -monitor H&H for acute blood loss anemia; pre-op Hgb: 14.9 Acute blood loss anemia, postop, dilutional Current hemoglobin 12.7 (stable from previous days) post op blood loss expected, no need for blood transfusion patient asymptomatic (2) Tachycardia: Plan: Reported h/o tachycardia. Controlled on beta brandie -Current rate controlled -Continue metoprolol succinate (3) Hyperlipidemia: Plan: -Continue fenofibrate. [place] 3 on hold, resume DC lipid panel: TG 339, TC: 169, LDL 75 (4) Gout: Plan: -Continue allopurinol DVT Prophylaxis -SCDs per ortho Disposition per primary service Follows with Dr Va Lopez for routine care Thank you for this consultation. We will follow the patient with you during their hospital stay. You can reach a member of the [facility] Hospitalist Team 21/05 via [employer] Admission and Anticipated Discharge Date Admission Date: June 03, 2021 Subjective Patient seen in follow-up after spinal surgery Currently walking around in his room, in no acute distress, denies any significant pain Denies any chest pain, shortness of breath, dizziness, lightheadedness He is voiding without difficulty, had a BM Overall feeling well, likely plan to discharge today Review of Systems Review of Systems: All systems reviewed & are unremarkable except as noted in Subjective Physical Exam Physical Exam: General: no distress, WDWN Head: normocephalic, atraumatic Eyes: conjunctiva non-injected, anicteric ENT: hard of hearing, normal inspection external ears, nose, mucous membranes moist Neck: supple, trachea midline Lungs: clear, no respiratory distress, no wheezing/rhonchi/rales CV: RRR, no pretibial edema Abd: normal BS, soft, non-tender Back: surgical dressing in place is dry, ARABELLA drain with serosanguineous drainage Ext: no calf tenderness; bilateral pedal pushes and pulls intact, distal pulses intact, sensation to light touch intact Neuro: A&O x 3, no focal deficits noted, normal affect Skin: warm, dry Results & Data Results & Data ([facility]) Vital Signs (Past 12 Hours) Vital Signs Temp Pulse Pulse Pulse Pulse Resp BP 06/06/21 09:29 37 C 79 82 77 75 16 121/66 06/06/21 07:00 37 C 75 16 06/05/21 21:55 37.1 C 82 16 BP Pulse Ox 06/06/21 09:29 123/77 95 06/06/21 07:00 123/77 95 06/05/21 21:55 144/78 H 93 Laboratory Results 06/06/21 06/06/21 Range/Units 05:34 05:34 WBC 6.89 (4.8-10.8) K/uL RBC 4.21 L (4.7-6.1) M/uL Hgb 12.7 L (14.0-18.0) g/dL Hct 38.0 L (42-52) % MCV 90.3 (80-100) fL MCH 30.2 (25-34) pg MCHC 33.4 (32-36) g/dL RDW Std Deviation 43.2 (36.4-46.3) fL RDW Coeff of Azeem 13.1 (11.5-14.5) % Plt Count 186 (130-400) K/uL MPV 9.8 (7.4-10.4) fL Sodium 136 (136-145) mmol/L Potassium 3.9 (3.5-5.1) mmol/L Chloride 104 (98-107) mmol/L Carbon Dioxide 27 (21-32) mmol/L Anion Gap 5.0 (3-11) BUN 15 (7-18) mg/dl Creatinine 1.04 (0.6-1.4) mg/dl Est Cr Clr Drug Dosing 89.4 ml/min Est GFR ( Amer) 93.2 ml/min Est GFR (Non-Af Amer) 80.5 ml/min BUN/Creatinine Ratio 14.1 (10-20) Glucose 155 H (70-99) mg/dl Calcium 8.4 L (8.5-10.1) mg/dl Triglycerides 339 H (0-150) mg/dl Cholesterol 169 (0-200) mg/dl LDL Cholesterol, Calc 75 mg/dl VLDL Cholesterol, Calc 68 mg/dl HDL Cholesterol 26 mg/dl Cholesterol/HDL Ratio 7 Medications Administered Current Inpatient Medications Acetaminophen (Acetaminophen 500 Mg Tab) 1,000 mg PO Q8H PRN PRN Reason: MILD Pain Scale 1,2,3 & Pre PT Stop: 07/03/21 15:43 Al Hydrox/Mg Hydrox/Simethicone (Aluminum/Magnesium Susp 30 Ml Udc) 30 ml PO Q6H PRN PRN Reason: Dyspepsia Stop: 07/03/21 15:43 Allopurinol (Allopurinol 300 Mg Tab) 300 mg PO HS GEETHA Stop: 07/03/21 20:59 Last Admin: 06/05/21 20:43 Dose: 300 mg Documented by: Bisacodyl (Bisacodyl 10 Mg Supp) 10 mg IA DAILY PRN PRN Reason: Constipation Stop: 07/03/21 15:43 Diphenhydramine HCl (Diphenhydramine Capsule 25 Mg Cap) 25 mg PO Q6H PRN PRN Reason: Allergic Rhinitis/Insomnia Stop: 07/03/21 15:43 Famotidine (Famotidine 20 Mg Tab) 20 mg PO Q12H PRN PRN Reason: Dyspepsia Stop: 07/03/21 15:43 Hydromorphone HCl (Hydromorphone Inj 0.5 Mg/0.5 Ml Syr) 0.5 mg IV Q3H PRN PRN Reason: MOD pain (scale 4-6) & Pre PT Stop: 06/17/21 15:43 Hydromorphone HCl (Hydromorphone Inj 1 Mg/Ml Syringe) 1 mg IV Q3H PRN PRN Reason: severe pain (scale 7-10) Stop: 06/17/21 15:43 Hydroxyzine HCl (Hydroxyzine Hcl 25 Mg Tab) 25 mg PO Q8H PRN PRN Reason: Anxiety Stop: 07/03/21 15:43 Promethazine HCl 12.5 mg/ (Sodium Chloride) 50.5 mls @ 202 mls/hr IV Q6H PRN PRN Reason: Nausea &/or Vomiting Stop: 07/03/21 15:43 Acetaminophen (Ofirmev) 1,000 mg in 100 mls @ 400 mls/hr IV Q8H PRN PRN Reason: Pain Rating 1-3 & Pre PT Stop: 06/06/21 15:43 Lorazepam (Ativan) 0.5 mg in 1 mls @ 1 mls/min IV Q8H PRN PRN Reason: Sedation/Anxiety Stop: 07/03/21 15:43 Influenza Virus Vaccine Quadrival (Do Not Administer Flu Vaccine) 1 ea N/A PRN PRN PRN Reason: Notification Stop: 07/03/21 15:43 Lorazepam (Lorazepam 0.5 Mg Tab) 0.5 mg PO Q8H PRN PRN Reason: sedation/anxiety Stop: 07/03/21 15:43 Magnesium Hydroxide (Magnesium Hydroxide Susp 30 Ml Udc) 30 ml PO Q24H PRN PRN Reason: Constipation Stop: 07/03/21 15:43 Metoclopramide HCl (Metoclopramide Hcl Inj 5 Mg/Ml 2 Ml Vial) 10 mg IV Q6H PRN PRN Reason: Nausea &/or Vomiting Stop: 07/03/21 15:43 Metoprolol Succinate (Metoprolol Succ 50mg Ext Rel Tab) 50 mg PO QAM GEETHA Stop: 07/04/21 08:59 Last Admin: 06/06/21 09:08 Dose: 50 mg Documented by: Miscellaneous (Fenofibric Acid (Choline) 135mg Cap: Order Awaiting Action) 1 ea N/A QS GEETHA Stop: 07/03/21 15:59 Last Admin: 06/06/21 08:43 Dose: Not Given Documented by: Naloxone HCl (Naloxone Hcl 0.4 Mg/1 Ml Vial/Carp) 0.1 mg IV Q5M PRN PRN Reason: Oversedation/respiratory dep Stop: 07/03/21 15:43 Ondansetron HCl (Ondansetron Inj 2 Mg/Ml 2 Ml Vial) 4 mg IV Q6H PRN PRN Reason: Nausea &/or Vomiting Stop: 07/03/21 15:43 Ondansetron HCl (Ondansetron 4 Mg Od Tab) 4 mg PO Q6H PRN PRN Reason: Nausea Stop: 07/03/21 15:43 Oxycodone HCl (Oxycodone Hcl Ir 5 Mg Tab (Immediate Release)) 5 - 10 mg PO Q4H PRN PRN Reason: Pain & Pre PT Stop: 06/17/21 15:43 Last Admin: 06/03/21 18:54 Dose: 5 mg Documented by: Pneumococcal Polyvalent Vaccine (Do Not Administer Pneumococcal Vaccine) 1 ea N/A PRN PRN PRN Reason: Notification Stop: 07/03/21 15:43 Pregabalin (Pregabalin 150 Mg Cap) 150 mg PO BID GEETHA Stop: 07/03/21 20:59 Last Admin: 06/06/21 09:08 Dose: 150 mg Documented by: Senna/Docusate Sodium (Docusate Sodium/Senna 50/8.6mg Tab) 2 tab PO HS GEETHA Stop: 07/03/21 20:59 Last Admin: 06/05/21 20:43 Dose: 2 tab Documented by: Sodium Biphosphate/Sodium Phosphate (Sod Phosphate/Sod Biphosphate Enema 132 Ml Btl) 132 ml IA ONE PRN PRN Reason: Constipation Stop: 07/03/21 15:43 Tramadol HCl (Tramadol Hcl 50 Mg Tablet) 50 - 100 mg PO Q4H PRN PRN Reason: Moderate-Severe pain & Pre PT Stop: 07/03/21 15:43 Last Admin: 06/06/21 09:09 Dose: 50 mg Documented by:
--- NOTE | 2021-06-06 12:06 | Discharge Summary ---
Date of Service June 06, 2021 Admission HPI Per Admitting Provider This is a 55-year-old male who presents with current persistent back and leg pain. Failing course of nonoperative care is here for surgical intervention. Principal Diagnosis Lumbar spinal stenosis with disc condition and radiculopathy Discharge Data Allergies Allergy/AdvReac Type Severity Reaction Status Date / Time No Known Allergies Allergy Verified 06/03/21 10:20 Consultations 06/03/21 15:44 Consult Hospitalist Routine Procedures Performed Operation Date: 06/03/21 12:05 Actual Procedures p L2-L3 Decompression/Fusion, Spinal Cord Monitoring - Jose Martin Wray DO Ordered Studies 06/03/21 07:00 [place] lumbar spine 2-3V Routine Hospital Course (1) Lumbar disc herniation with radiculopathy: Patient with lumbar decompression fusion tolerated this well was taken to orthopedic floor postoperative. Postop day 1 is up ambulating briskly postop day #2 on postop day #3 pain was well controlled ARABELLA drain decreased appropriate. Excellent strength testing. Subsequent discharge home. Discharge orders instructions from the chart for further review. Total Time Total Time Spent Total Time Spent (In Minutes): 20 minutes Discharge Plan Discharge Items Patient Disposition: Home - Self-Care Reason For Visit: Intervertebral Disc Disorders with Radiculopathy Discharge Diagnosis: Lumbar disc condition with radiculopathy Activity: As commented below Non-emergency contact: Primary Care Provider Call non-emergency contact if: you have any medication questions Follow-up/Referrals: Va Lopez D.O. [Primary Care Provider] - Diet: Regular Addtl Attending Provider Instructions: ACTIVITY RECOMMENDATIONS: SELF CARE INSTRUCTIONS AFTER THORACIC/LUMBAR FUSIONS 1. You may walk to your tolerance. It is good exercise for your legs and back. Expect some back and intermittent leg aches and pains. 2. You may perform "counter-top" level activities (make a sandwich, dwayne with a project, etc.). 3. No bending or lifting of more than 10 pounds or back twisting of any nature (roll like a log when turning in bed). 4. You may ride in a car for 20-30 minutes at a time. No driving until after your first visit with your doctor. 5. Frequent changes of position and restricting sitting to 30 minutes at a time will help limit the amount of back spasms and stiffness you may experience. 6. You may discontinue the use of ambulatory aids (cane, crutches, etc.) once your strength and confidence allow. 7. You may financial writer the shower and let water strike your incision when you arrive home at least once daily. Do not take a tub bath, sit in a hot tub or go into a swimming pool until after your first recheck in the office. SPECIAL CARE INSTRUCTIONS: VERY IMPORTANT TO READ AND REVIEW A. Your surgical incision has been closed with a cosmetic suture under the skin that will dissolve in about 6 weeks. In 14 days, you can use a pair of clean scissors and cut the suture that is left outside of the skin at the ends of your incision. 1. The small skin tapes can be removed 7 days after surgery if they have not fallen off by that point. 2. You may keep the wound open to air as much as possible to promote healing after post-op day number 5 unless told otherwise by your doctor. 3. If you think the wound looks like it is becoming infected (redness or worsening drainage) and/or you are experiencing fever, chill or worsening back pain and muscle spasms, contact the office so that we may evaluate you as soon as possible. B. Complications are uncommon, but please contact us if you have any signs or symptoms of: 1. wound infection (fever higher than 102.5 degrees F, redness, separation of wound, drainage, or increasing pain from the incision) 2. blood clots in legs (pain, swelling, redness and warmth in legs) 3. urinary tract infection (fever higher than 102.5 degrees F, burning upon urination or increased frequency of urination) 4. nerve problems (inability to walk on your toes or heels, numbness, loss of bowel or bladder control) 5. any other symptoms that concern you C. Please call the office at if you have any concerns or questions about your operation or recovery. D. No smoking! Smoking drastically decreases the chance of a solid fusion. E. Do not take any anti-inflammatory medications (Indocin, Advil, Motrin, Aspirin, Naprosyn, etc.) as these may inhibit the chance of a solid fusion. Tylenol is okay to take for pain. MANAGING PAIN AFTER SPINAL SURGERY 1. Narcotic medication is intended for short-term use and will be provided for surgical pain. Surgical pain usually lasts for a period of 4-6 weeks. Narcotic medication includes Percocet, Vicodin, Darvocet, Tylenol #3 or Lortab. 2. Longer-term pain is more appropriately treated with non-narcotic medication such as Tylenol ES. 3. Muscle spasm is not appropriately treated with narcotics. Muscle relaxers such as Soma, Flexeril or Skelaxin can be used along with Tylenol ES. 4. Remember that we all live with some "aches and pains". This is not unusual or uncommon after an injury or as we get older. a. Back pain is expected and may include muscle spasms for 4 to 6 weeks after surgery. The pain should gradually improve. If the pain worsens for no apparent reason, please contact the office. b. Intermittent leg pain may also be experienced and should not be concerned about unless it worsens for no apparent reason. If so, please contact the office. 5. We will provide appropriate medication within the normal guidelines of their prescribed use. We will also be very cautious and aware of potential abuse and extended duration of patients' medication needs. a. Pain medications are for your comfort and to assist with sleep and rest so that the tissue can heal. They are not provided in order to return to normal activity and should not be used through the day. To do so or worsening pain at night can result from ongoing tissue damage and development of tolerance to the prescribed medicine. 6. Please allow 2-3 days to process refills. Prescriptions will not be mailed but must be picked up at the office. FOLLOW UP VISIT: Keep your scheduled follow-up appointment. Any questions, please call the office at . Pending Studies at Discharge: No Stand-Alone Forms: [facility], Smoking Cessation Medications and DC Order Prescriptions: New oxycodone 5 mg tablet 5 mg PO Q6H PRN (Reason: pain, severe) Qty: 30 RF: 0 tramadol 50 mg tablet 50 mg PO Q6H PRN (Reason: pain, moderate) Qty: 30 RF: 0 Continued celecoxib [Celebrex] 200 mg Capsule 200 mg PO BID RF: 0 metoprolol succinate 50 mg Tablet Extended Release 24 Hr 50 mg PO QAM RF: 0 allopurinol 300 mg Tablet 300 mg PO HS RF: 0 pregabalin [Lyrica] 150 mg Capsule 150 mg PO BID RF: 0 fenofibric acid (choline) 135 mg Capsule,Delayed Release(Dr/Ec) 135 mg PO QAM RF: 0 omega [id number] oil 900-1,400 mg Capsule,Delayed Release(Dr/Ec) 1 cap PO TID RF: 0 Discharge Orders: Discharge Order (Routine); Ordered 06/06/21 Ordered By: Jose Martin Villalpando/Other Patient Handouts: DVT Post Op Prevention Admission Data Admit Date/Time: 06/03/21 14:07 Attending Provider: Jose Martin Wray Admit Provider: Jose Martin Wray Primary Care Provider: Va Lopez Other Providers: Marcin Strong Other Interventions: Discharge Summary Assessment (RN) Last Done: 06/06/21 09:29
== END 2021-06-06 16:13 | disposition home or self-care (01) | DRG 454 ==
LOC: ASU 09:46 → 3E 14:07